=== PATIENT | male | born 1960 | race Caucasian/White ===

== ENCOUNTER 2025-06-20 11:25 | Emergency (ER) | payer BC, MEDICARE, SELFPAY ==
[2025-06-20 11:27] VITALS: BP 155/103
[2025-06-20 11:54] LABS: Urine Character Cloudy (Clear)
[2025-06-20 12:06] LABS: Urine Red Blood Cell >100 /HPF (0-2)
[2025-06-20 13:33] LABS: Hematocrit 45.7 % (39.0-52.0); Hemoglobin 14.8 g/dL (13.0-18.0); Mean Corp Hgb Conc. 32.4 g/dL (33.0-37.0); Mean Corpuscular Volume 93.5 fL (80.0-94.0); Nucleated Red Blood Cells % 0 % (-); Platelet Count 195 10^3/uL (130-400); Red Cell Dist. Width 13.2 % (11.5-14.5)
[2025-06-20 13:48] LABS: Blood Urea Nitrogen 22 mg/dl (9-20); Calcium 9.4 mg/dl (8.4-10.2); Carbon Dioxide 27 mmol/L (22-30); Chloride 107 mmol/L (98-107); Glucose 104 mg/dl (70-99); Potassium 4.3 mmol/L (3.5-5.1); Sodium 140 mmol/L (135-145); eGFR > 60.00
--- NOTE | 2025-06-20 16:58 | ED.GENMED ---
History of Present Illness
General
Chief Complaint: Urinary Symptoms
Source: patient
Time Seen by Provider: 06/20/25 12:17
History of Present Illness
History of Present Illness:
64-year-old male presents to the emergency room complaining of hematuria. Patient was feeling well in general but noticed that his urine was becoming progressively dark throughout the course of the day. His last urination was quite dark. No
fever, chills, nausea or vomiting. No history of hematuria. He had a renal mass excised many years ago. He did not require any chemo. He has been cleared from that lesion for some time. No history of kidney stones. He denies any back pain or
abdominal pain. He does not take any oral anticoagulation.
Phy Exam
Physical Exam
Physical Exam:
General: Awake, Alert, Oriented X3. No acute distress. High BMI
Vitals: unremarkable
Head: Atraumatic
Eyes: Pupils equal, EOMI
Throat: Airway intact, no exudates
Neck: Trachea midline
Lungs: Clear and equal b/l
Heart: Regular rate, no murmurs
Abd: Soft, Nontender, No pulsatile mass
Back: No CVA tenderness to percussion
Neuro: Nonfocal
Skin: Warm, dry, no rash
Extremities: pulses equal b/l, no edema
Course
Orders/Labs/Results
Orders:
Orders
06/20/25 11:35
Urinalysis Reflex To Culture Urgent
Date Specimen was Collected: 06/20/25
Time Specimen was Collected: 11:31
Urine Microscopic Reflex Cult Urgent
Urine Culture Urgent
NICOL Source: U
Specimen Description:
Date Specimen was Collected: 06/20/25
Time Specimen was Collected: 11:31
06/20/25 12:46
US Kidneys and US Bladder [US Renal With Bladder] Urgent
Comment:
Reason For Exam: hematuria, hx of kidney mass
06/20/25 13:16
Basic Metabolic Panel Urgent
Complete Blood Count/With Diff Urgent
06/20/25 17:11
Cephalexin Monohydrate [Keflex] 500 mg PO NOW STA
Abnormal Lab Results
06/20/25 06/20/25
11:35 13:16
MCHC 32.4 L g/dL
(33.0-37.0)
MPV 10.9 H fL
(7.4-10.4)
Absolute Neuts (auto) 6.7 H 10^3/uL
(1.4-6.5)
Absolute Lymphs (auto) 1.1 L 10^3/uL
(1.2-3.4)
Absolute Monos (auto) 0.7 H 10^3/uL
(0.1-0.6)
Neutrophils % 78.2 H %
(42.2-75.2)
Lymphocytes % 13.3 L %
(20.5-51.1)
BUN 22 H mg/dl
(9-20)
Glucose 104 H mg/dl
(70-99)
Urine Ketones 1+ A
(Negative)
Ur Occult Blood Reflex 4+ A
(Negative)
Urine Nitrite (Reflex) Positive A
(Negative)
Leukocyte Esterase Rfl 2+ A
(Negative)
Urine RBC >100 A /HPF
(0-2)
Urine Albumin (Reflex) 3+ A
(Neg - Trace)
06/20/25 13:16
06/20/25 13:16
Vital Signs
Initial and Last Documented VS:
Initial Vital Signs
Temp Pulse Resp BP Pulse Ox
97.9 F 116 20 155/103 95
06/20/25 11:27 06/20/25 11:27 06/20/25 11:27 06/20/25 11:27 06/20/25 11:27
Last Documented Vital Signs
Temp Pulse Resp BP Pulse Ox
97.9 F 116 20 155/103 95
06/20/25 11:27 06/20/25 11:27 06/20/25 11:27 06/20/25 11:27 06/20/25 17:00
MDM/Problems Addressed
Differential Diagnosis Includes:
Hemorrhagic cystitis, kidney stone, bladder lesion
MDM/Problems Addressed:
Patient presents with hematuria. Labs including platelet count are unremarkable. Urinalysis of course shows blood and greater than 100 RBCs per high-power field. Nitrates were positive as well as leukocyte esterase so we will cover with Keflex
for possible hemorrhagic cystitis. However I have stressed to the patient the need to follow-up with urology to exclude a bladder lesion.
*Radiology
Radiology exam reviewed: radiology read reviewed
*Pulse Oximetry
SaO2: 95
Oxygen Mode of Delivery: Room air
Patient hypoxic: no
*Critical Care Note
Total Time (30-74mins, 75-104mins- exclusive of procedures): Not Applicable
ED Attending Note
-
Portions of this chart may have been created with voice recognition software.� Occasional wrong word or��sound alike� substitutions may have occurred due to the inherent limitations of voice recognition software.
Discharge Plan
Departure
Patient Disposition: Home (Routine Discharge)
Date of Disposition: 06/20/25
Time of Disposition: 16:58
Patient with high blood pressure during this ER visit?: Yes
Condition: Good
Discharge Problem:
Hematuria
Instructions: Blood in the Urine (Hematuria), Adult (DC), BLOOD PRESSURE
Prescriptions:
New
cephalexin 500 mg capsule
500 mg PO BID 7 Days Qty: 14 0RF
Referrals:
Genaro Montanez MD [Active, Urology]
NONE,* [Family Provider, Internal Medicine]
Activity Restrictions/Additional Instructions:
Call Dr. Montanez's office for an appointment.
Interventions
Interventions:
*Risk Screen - Suicide Last Done: 06/20/25 11:27
*General Assessment Last Done: 06/20/25 11:27
Discharge Date and Time
Print Language: SAMOAN
[2025-06-20] MEDS: KEFLEX 500 MG PO (17:22)
== END 2025-06-20 17:36 | disposition home or self-care (01) ==
LOC: EMR 11:25
PROVIDERS: Emergency Medicine; EMERGENCY PHYSICIAN Emergency Medicine
DX: R31.9 Hematuria, unspecified (principal); R82.998 Other abnormal findings in urine; Z87.448 Personal history of other diseases of urinary system; Z98.890 Other specified postprocedural states
CPT/HCPCS: 99284; 76770; 80048; 81003; 81015; 85025; 87086